=== PATIENT | female | born 1990 | race Caucasian/White ===

== ENCOUNTER → 2024-01-10 | Outpatient (CLI) | payer OTHER | END | disposition home or self-care (01) | LOC: LABWHC1 16:09 | PROVIDERS: ATTEND Obstetrics & Gynecology | DX: O20.0 Threatened abortion (principal); Z3A.00 Weeks of gestation of pregnancy not specified | CPT/HCPCS: 36415; 84702 ==

== ENCOUNTER → 2024-01-24 | Outpatient (CLI) | payer OTHER | END | disposition home or self-care (01) | LOC: LABWHC1 07:42 | PROVIDERS: ATTEND Obstetrics & Gynecology | DX: Z34.01 Encounter for supervision of normal first pregnancy, first trimester (principal) | CPT/HCPCS: 36415; 83036 ==

== ENCOUNTER 2024-09-06 10:11 | Inpatient (IN) | payer OTHER ==
[2024-09-17] MEDS ORDERED: TRANEXAMIC 1,000 MG/100ML-NACL 1,000 MG in EMPTY BAG 1 BAG IV PRN (19:18)
[2024-09-17] MEDS ORDERED: TERBUTALINE 1 MG/ML VIAL SQ PRN (19:18)
[2024-09-17] MEDS ORDERED: CARBOPROST TROMETHAMINE 250 MCG/ML 1 ML AMP IM PRN (19:18)
[2024-09-17] MEDS ORDERED: LIDOCAINE 0.5% (PF) 5 MG/ML (50 ML SDV) SQ PRN (19:18)
[2024-09-17] MEDS ORDERED: METHYLERGONOVINE 0.2 MG/ML 1 ML AMP IM PRN (19:18)
[2024-09-17] MEDS ORDERED: OXYTOCIN 10 UNIT/ML 1 ML VIAL IM PRN (19:18)
[2024-09-17] MEDS: LACTATED RINGERS 1,000 ML IV SCH (19:25)
[2024-09-17 19:48] LABS: Basophils # (A) 0.04 10*3/uL (0.00-0.10); Basophils % (A) 0.3 %; Eosinophils # (A) 0.09 10*3/uL (0.04-0.35); Eosinophils % (A) 0.7 %; HCT 35.6 % (37.2-46.3); HGB 12.8 g/dL (12.0-15.0); Lymphocytes # (A) 2.21 10*3/uL (0.90-5.00); Lymphocytes % (A) 16.5 %; MCH 33.4 pg (27.0-32.0); MCHC 36.0 g/dL (32.0-37.0); MCV 93.0 fL (80.0-97.0); Monocytes # (A) 0.80 10*3/uL (0.20-1.00); Monocytes % (A) 6.0 %; Neutrophils # (A) 10.15 10*3/uL (1.80-7.70); Neutrophils % (A) 75.9 %; Platelet Count 226 10*3/uL (140-440); RBC 3.83 10*6/uL (4.10-5.20); RDW 12.4 % (11.5-14.5); WBC 13.37 10*3/uL (4.50-10.00)
[2024-09-17 19:53] VITALS: RESP 16
--- NOTE | 2024-09-17 20:30 | P.HPOB ---
History of Present Illness H&P Date: 09/17/24 Chief Complaint: Induction of labor Ms. Espinoza is a 34 year old at 41 weeks and 4 days with EDC of 09/06/2024 by LMP consistent with 8 week US who presents for medical induction of labor for post-dates. The has been essentially uncomplicated. The fetus is daniel mated in the 42%ile based on a 33 week growth US. work-up: blood type O positive, antibody screen negative, rubella immune, VDRL non-reactive, HBsAg negative, HIV negative, HCV non-reactive, gonorrhea negative, chlamydia negative, 1 hour GTT wnl, GBS negative. s/p Tdap. Past Medical History Additional Past Medical History / Comment(s): migraines History of Any Multi-Drug Resistant Organisms: None Reported Additional Past Surgical History / Comment(s): 3 left knee surgery Past Anesthesia/Blood Transfusion Reactions: No Reported Reaction Past Psychological History: Anxiety Smoking Status: Never smoker Past Alcohol Use History: None Reported Past Drug Use History: None Reported Medications and Allergies Home Medications Medication Instructions Recorded Confirmed Type Aspirin [Adult Low Dose Aspirin EC] 1 tab PO DAILY 09/17/24 09/17/24 History Vit No.179/Iron/Folic 1 tab PO DAILY 09/17/24 09/17/24 History [ Tablet] Allergies Allergy/AdvReac Type Severity Reaction Status Date / Time nickel Allergy Rash/Hives Verified 09/17/24 19:17 Exam Vital Signs Temp Pulse Resp BP Pulse Ox 09/17/24 19:16 96.9 F L 86 16 127/72 97 Intake and Output 09/17/24 09/17/24 09/17/24 06:59 14:59 22:59 Other: Weight 98.883 kg Focused physical exam is performed. This is a healthy-appearing in no apparent distress. Breathing is non-labored. Abdomen is gravid and non-tender. Cervical exam is 2/70/-3. Internal leads are placed. AROM is undertaken with clear fluid noted. Extremities non-tender and non-edematous. heart tones are Category II with baseline 150s, irregular contractions, no accelerations, intermittent late decelerations. Results Result Diagrams: 09/17/24 19:20 Abnormal Lab Results - Last 24 Hours (Table) 09/17/24 Range/Units 19:20 WBC 13.37 H (4.50-10.00) 10*3/uL RBC 3.83 L (4.10-5.20) 10*6/uL Hct 35.6 L (37.2-46.3) % MCH 33.4 H (27.0-32.0) pg Immature Gran # 0.08 H (0.00-0.04) 10*3/uL Neutrophils # 10.15 H (1.80-7.70) 10*3/uL Assessment and Plan Assessment: 34 year old at 41 weeks and 4 days presenting to L&D for medical induction of labor Plan: Admit, clear liquid diet, pitocin per protocol, continuous EFM, epidural PRN.
[2024-09-17] MEDS: OXYTOCIN 30 UNITS/500 ML NS 30 UNIT in SALINE 1 500ML.BAG IV SCH (20:36)
[2024-09-18] MEDS ORDERED: CARBOPROST TROMETHAMINE 250 MCG/ML 1 ML AMP IM PRN (00:11)
[2024-09-18] MEDS ORDERED: METHYLERGONOVINE 0.2 MG/ML 1 ML AMP IM PRN (00:11)
[2024-09-18] MEDS ORDERED: OXYTOCIN 10 UNIT/ML 1 ML VIAL IM PRN (00:11)
[2024-09-18] MEDS ORDERED: TRANEXAMIC 1,000 MG/100ML-NACL 1,000 MG in EMPTY BAG 1 BAG IV PRN (00:11)
[2024-09-18] MEDS: CITRIC ACID-SODIUM CITRATE 15 ML CUP PO ONE (00:27)
[2024-09-18] MEDS ORDERED: KETOROLAC 30 MG/ML 1 ML VIAL ONE (00:33)
[2024-09-18] MEDS ORDERED: NALBUPHINE (ANES) 10 MG/ML - 1 ML AMP ONE (00:33)
[2024-09-18] MEDS ORDERED: MORPHINE SULFATE (PF) 0.3 MG/0.3 ML SYR ONE (00:33)
[2024-09-18] MEDS ORDERED: PHENYLEPHRINE-0.9% NACL SYG 1,000 MCG/10 ML SYRINGE ONE (00:33)
[2024-09-18] MEDS ORDERED: ONDANSETRON 4 MG/2 ML VIAL ONE (00:33)
[2024-09-18] MEDS ORDERED: OXYTOCIN 30 UNITS/500 ML NS BAG IV ONE (00:33)
[2024-09-18] MEDS ORDERED: SIMETHICONE 80 MG CHEWABLE PO PRN (01:31)
[2024-09-18] MEDS ORDERED: diphenhydrAMINE 25 MG CAP PO PRN (01:31)
[2024-09-18] MEDS ORDERED: ZOLPIDEM 5 MG TAB PO PRN (01:31)
[2024-09-18] MEDS ORDERED: NALOXONE 0.4 MG/ML 1 ML VIAL IV PRN (01:31)
[2024-09-18] MEDS ORDERED: METOCLOPRAMIDE 5 MG/ML 2 ML VIAL IVP PRN (01:31)
[2024-09-18] MEDS ORDERED: diphenhydrAMINE 50 MG/ML 1 ML VIAL IVP PRN ×2 (01:31)
--- NOTE | 2024-09-18 01:31 | P.OP ---
Date of Procedure: 09/18/24 Preoperative Diagnosis: 1. Term IUP at 41 weeks and 5 days 2. Persistent Category II Heart Tones Remote from Delivery Postoperative Diagnosis: 1. Term IUP at 41 weeks and 5 days 2. Persistent Category II Heart Tones Remote from Delivery 3. Nuchal cord x1 Procedure(s) Performed: Primary Lower Transverse Section Implants: None Anesthesia: spinal Surgeon: Johanna Andujar Windows [employer] Administrator #1: Jaime Carolina Estimated Blood Loss (ml): 67 IV fluids (ml): 1,200 Urine output (ml): 1,000 Pathology: none sent Condition: stable Disposition: floor Indications for Procedure: Ms. Espinoza is a 34 year old at 41 weeks and 5 days who presented yesterday evening for induction of labor. Upon admission, there was a Category II tracing. The decision was made to rupture membranes, place internal monitors, and begin induction with pitocin per protocol. The fetus did not tolerate labor and there was a persistent Category II tracing with intermittent lates and variable decelerations. Category II FHT managed following algorithm including initiation of corrective measures of repositioning and fluid boluses. With the persistent presence of late and variable decelerations in addition to a 3-minute late deceleration, a patient-centered huddle was held and the need for an expedited deliver was discussed with the patient. It is our clinical recommendation to proceed with the delivery and after questions were answered to the patient agrees to proceed with the recommended plan. The risks, benefits, and alternatives to section were discussed with the patient including risk of bleeding, infection, damage to surrounding structures including bladder/bowels/ureters, and post-operative VTE. The patient understands these risks and desires to proceed with section. Operative Findings: Colorless amniotic fluid. Viable male in cephalic presentation. Nuchal cord x1. Normal uterus, bilateral fallopian tubes, and ovaries. Description of Procedure: The patient was taken back to the operating room where spinal anesthesia was found to be adequate. Two grams of Ancef were given for infection prophylaxis. She was prepared and draped in the dorsal supine position with a leftward tilt. A Pfannenstiel skin incision was made with the scalpel. The incision was carried down to the fascia with a bovie. The fascia was incised and extended laterally with Paris scissors. The superior aspect of the fascia was grasped with the Mihai clamps. The underlying rectus muscle was dissected off sharply with Paris scissors. In a similar fashion, the inferior aspect of the fascia was elevated with Mihai clamps and the rectus muscle and pyramidalis were dissected off. Excellent hemostasis was achieved with the bovie. The rectus muscle was in the midline down to the level of the pubic symphysis. Pre- peritoneal fatty tissue was bluntly dissected to expose the peritoneum. The peritoneum was found to be free of adherent bowel and entered sharply with Paris scissors. The peritoneal incision was extended superiorly and inferiorly to the bladder reflection with good visualization of the bladder. The bladder blade was inserted and vesicouterine peritoneum was identified. Intraabdominal survey revealed scant, clear peritoneal fluid and the thinned-out lower uterine segment. The bladder blade was repositioned to keep the bladder out of the operative field. The lower uterine segment was incised with a scalpel. The amniotic sac was ruptured with an Allis clamp and clear fluid was noted. The uterine incision was extended bluntly with lateral and upward traction. The fetus was in cephalic presentation. The head was elevated out of the pelvis with special attention paid to avoid using the uterine incision as a fulcrum. Gentle fundal pressure was applied once the head was brought into the incision. One nuchal cord was redued. The infant was delivered with no difficulty and was n oted to be crying spontaneously. The mouth and nose were suctioned with a bulb. The cord was clamped and cut. The infant was handed off to the manager corporate responsibility. IV oxytocin was initiated to facilitate uterine contractions. The placenta was delivered intact with manual massage of uterine fundus. The uterus was then exteriorized and the inside of the uterus was gently wiped with a lap sponge to assure complete removal of placental membranes. The uterine incision was closed with 0-Vicryl suture in a running locked fashion. A second imbricating layer was placed with 0-Vicryl. The ovaries and tubes were found to be normal. The uterus, tubes, and ovaries were then gently returned to the abdominal cavity. The abdomen was copiously suction irrigated. The uterine incision was reinspected and excellent hemostasis was noted. The fascial layer was closed with a 0-Vicryl suture. The subcutaneous tissue was reapproximated with 2-0 Plain Gut. The skin was closed with 4-0 Monocryl in a subcuticular fashion.The patient tolerated the procedure well. All the counts were correct times two. The patient was taken to the recovery room in a stable condition. A physician surgical consultant was utilized for the entire procedure due to the need for tissue retraction, dissection of vital structures, prevention and management of blood loss, and reduction in overall operative and anesthesia time as is the standard of care.
[2024-09-18] MEDS: ACETAMINOPHEN TAB 500 MG TAB PO SCH (05:03)
[2024-09-18] MEDS: LACTATED RINGERS 1,000 ML IV SCH (05:21)
[2024-09-18] MEDS: ONDANSETRON 4 MG/2 ML VIAL IVP PRN (08:13)
[2024-09-18] MEDS: KETOROLAC 15 MG/ML 1 ML VIAL IVP SCH (08:16)
[2024-09-18] MEDS: SENNOSIDES-DOCUSATE SODIUM 1 EACH TAB PO SCH (08:17)
[2024-09-19 06:35] LABS: Basophils # (A) 0.05 10*3/uL (0.00-0.10); Basophils % (A) 0.5 %; Eosinophils # (A) 0.18 10*3/uL (0.04-0.35); Eosinophils % (A) 1.6 %; HCT 30.6 % (37.2-46.3); HGB 10.6 g/dL (12.0-15.0); Lymphocytes # (A) 2.14 10*3/uL (0.90-5.00); Lymphocytes % (A) 19.4 %; MCH 33.2 pg (27.0-32.0); MCHC 34.6 g/dL (32.0-37.0); MCV 95.9 fL (80.0-97.0); Monocytes # (A) 0.78 10*3/uL (0.20-1.00); Monocytes % (A) 7.1 %; Neutrophils # (A) 7.83 10*3/uL (1.80-7.70); Neutrophils % (A) 70.9 %; Platelet Count 161 10*3/uL (140-440); RBC 3.19 10*6/uL (4.10-5.20); RDW 12.7 % (11.5-14.5); WBC 11.03 10*3/uL (4.50-10.00)
[2024-09-19] MEDS: IBUPROFEN 800 MG TAB PO SCH (06:55)
--- NOTE | 2024-09-19 07:49 | P.PNOBGPC ---
Subjective - Subjective Principal diagnosis: s/p primary section Interval history: The patient is doing well this morning and had no acute events overnight. She has no complaints this morning. She reports minimal lochia, passing flatus, voiding without difficulty, ambulating, and eating/drinking without nausea or vomiting. She is her without difficulty. She denies chest pain, shortness of breathing, fevers, or chills overnight. She denies pain or swelling in the legs. Patient reports: Reports appetite normal, Reports voiding normally, Reports pain well controlled, Reports ambulating normally [place]: doing well Objective - Vital Signs Latest vital signs: Vital Signs Temp Pulse Resp BP Pulse Ox 09/19/24 00:00 97.7 F 99 16 109/64 99 09/18/24 16:00 98.4 F 63 16 114/74 97 09/18/24 12:00 98.5 F 62 16 102/57 97 09/18/24 08:00 98.6 F 66 16 100/58 96 Intake and Output 09/18/24 09/19/24 09/19/24 22:59 06:59 14:59 Output Total 550 600 Balance -550 -600 Output: Urine 550 600 Straight 550 Other: # Voids 0 1 - Exam Extremities: Present: normal Abdomen: Present: normal appearance, soft Incision: Present: normal, dry, intact Uterus: Present: normal, firm - Labs Labs: Abnormal Lab Results - Last 24 Hours (Table) 09/19/24 Range/Units 06:09 WBC 11.03 H (4.50-10.00) 10*3/uL RBC 3.19 L (4.10-5.20) 10*6/uL Hgb 10.6 L (12.0-15.0) g/dL Hct 30.6 L (37.2-46.3) % MCH 33.2 H (27.0-32.0) pg Immature Gran # 0.05 H (0.00-0.04) 10*3/uL Neutrophils # 7.83 H (1.80-7.70) 10*3/uL Assessment and Plan Assessment: 34 year old now POD#1 s/p primary section for non-reassuring FHTs Plan: 1. Post-op. Meeting all milestones appropriately. 2. Viable male infant. Doing well at bedside, will need circumcision tomorrow. Dispo: Anticipate discharge home tomorrow.
[2024-09-19] MEDS ORDERED: IBUPROFEN 800 MG TAB PO SCH (08:00)
--- NOTE | 2024-09-19 09:37 | P.PN ---
Progress Note - Text Progress Note Date: 09/19/24 Postoperative day 1 status post section under spinal anesthesia, and intrathecal morphine given for postoperative analgesia, patient doing well, there is no anesthesia related complications, Patient had no headache, vital signs stable , Assessment and plan= postop day 1 status post , doing well there is no anesthesia related complication.
--- NOTE | 2024-09-20 07:31 | P.DS ---
Providers Date of admission: 09/17/24 18:56 Expected date of discharge: 09/20/24 Attending physician: Johanna Andujar MD Primary care physician: Angelica Trujillo [facility] Course: Ms. Espinoza is a 34 year old POD#2 s/p primary 2/2 non- reassuring FHTs and intolerance to labor. The surgery was uncomplicated, please refer to operative report. The patient is doing well this morning and had no acute events overnight. She has no complaints this morning. She reports minimal lochia, passing flatus, voiding without difficulty, ambulating, and eating/drinking without nausea or vomiting. doing well at bedside, s/p circumcision. She denies chest pain, shortness of breathing, fevers, or chills overnight. She denies pain or swelling in the legs. restrictions are reviewed with the patient including pelvic rest for 6 weeks. The patient is encouraged to call the office if she experiences any heavy bleeding, foul- smelling discharge, breast complaints, or any if she has any other concerns. She will follow up in the office in 2 weeks for postoperative exam. All questions are answered. Patient Condition at Discharge: Good Plan - Discharge Summary New Discharge Prescriptions: No Action Vit No.179/Iron/Folic [ Tablet] 1 tab PO DAILY Aspirin [Adult Low Dose Aspirin EC] 1 tab PO DAILY Discharge Medication List Aspirin [Adult Low Dose Aspirin EC] 1 tab PO DAILY 09/17/24 [History] Vit No.179/Iron/Folic [ Tablet] 1 tab PO DAILY 09/17/24 [History] Follow up Appointment(s)/Referral(s): Johanna Andujar MD [STAFF PHYSICIAN] - 10/02/24 3:45 pm (Post Appartment 10-30-2024 at 10:45am) Activity/Diet/Wound Care/Special Instructions: Instructions 1. Do not begin any exercise program for 3 weeks. 2. Do not resume sexual relations for 6 weeks or longer if uncomfortable. 3. You may take tub baths or showers at any time. 4. You may use tampons if desired after 6 weeks. 5. Keep any areas repaired with stitches clean and dry. 6. If you are not nursing, wear a good fitting, supportive bra during the day and limit fluid intake for at least 1 week to prevent breast engorgement. 7. Call the office, , within the next week to make appointment for your 6 week checkup if it has not already been made. 8. Report any of the following occurrences to the doctor promptly: a. Heavy, excessive bleeding b. Chills, fever c. Burning or frequency of urination d. Pain or redness and breasts if nursing e. Increasing pain or swelling of vulva (stitches). In addition to the above instructions, the following additional should be followed: 1. No heavy lifting or straining (exercising) until after 6 week checkup. 2. Keep abdominal incision clean and dry: You may wear a dressing if more comfortable. 3. Make office appointment for 2 weeks after delivery date. Discharge Disposition: HOME SELF-CARE
[2024-09-20 09:42] VITALS: BP 106/70; PULSE 86; TEMP 98.2
== END 2024-09-20 12:20 | disposition home or self-care (01) | DRG 788 ==
LOC: 4FBP 09-17 18:56
PROVIDERS: ADMIT Obstetrics & Gynecology; ATTEND Obstetrics & Gynecology
PROC: 3E033VJ Introduction of Other Hormone into Peripheral Vein, Percutaneous Approach (ICD-10-PCS; 2024-09-17)
PROC: 10907ZC Drainage of Amniotic Fluid, Therapeutic from Products of Conception, Via Natural or Artificial Opening (ICD-10-PCS; 2024-09-17)
PROC: 10D00Z1 Extraction of Products of Conception, Low, Open Approach (ICD-10-PCS; principal; 2024-09-18 00:33)
DX: O48.0 Post-term pregnancy (principal); F41.9 Anxiety disorder, unspecified; O99.344 Other mental disorders complicating childbirth; O76 Abnormality in fetal heart rate and rhythm complicating labor and delivery; O69.81X0 Labor and delivery complicated by cord around neck, without compression, not applicable or unspecified; Z79.82 Long term (current) use of aspirin; Z3A.41 41 weeks gestation of pregnancy; Z37.0 Single live birth
CPT/HCPCS: 85025; 86850; 86900; 86901